=== PATIENT | male | born 1950 | race Caucasian/White ===

== ENCOUNTER → 2016-08-18 | Outpatient (CLI) | payer OTHER ==
[~2016-08-18] MED LIST: APAP/OXYCODONE1 TA2 PO; ASPIRIN325 MG PO; Accuneb 0.1.25 MG/3 NEB; BYDUREON PEN2 MG SC; CAPOTEN50 MG PO; ECOTRIN81 M1 PO; FOLTANX RF CAP1 EACH PO; HUMALOG100 U/ML SC; INVOKANA300 M1 PO; Lovenox40 MG/0.4 SC; METFORMIN1000 MG PO; MOBIC7.5 MG PO
== END | disposition home or self-care (01) ==
LOC: ORTHO 03:17
DX: M16.11 Unilateral primary osteoarthritis, right hip (principal); Z96.641 Presence of right artificial hip joint

== ENCOUNTER → 2017-09-12 | Outpatient (CLI) | payer BC | END | disposition home or self-care (01) | LOC: ORTHO 01:27 | DX: Z47.2 Encounter for removal of internal fixation device (principal); Z96.641 Presence of right artificial hip joint ==

== ENCOUNTER → 2018-09-13 | Outpatient (CLI) | payer MEDICARE | END | disposition home or self-care (01) | LOC: ORTHO 08:02 | DX: Z96.641 Presence of right artificial hip joint (principal) ==